=== PATIENT | female | born 1975 | race Caucasian/White ===

== ENCOUNTER 2022-09-25 13:03 | Emergency (ER) | payer OTHER, SELFPAY ==
[2022-09-25 13:04] VITALS: BP 130/77; PULSE 119; RESP 16; TEMP 36.6; O2SAT 100; BMI 24.1
--- NOTE | 2022-09-25 14:12 | US_ITS ---
STUDY: ULTRASOUND TRANSVAGINAL CLINICAL: Female, 46 years old. Vaginal Bleeding TECHNIQUE: Transvaginal COMPARISON: None. FINDINGS: Normal uterine size measuring 9.7 x 6.7 x 4.8 cm in maximal craniocaudal dimension. Hypoechoic myometrial mass measures 1.1 x 0.7 x 0.7 cm. Heterogeneous myometrium with clinician blind artifact suggestive of adenomyosis. Normal endometrial thickness measuring 11.3 mm. There are no endometrial masses, and there is no fluid in the endometrial cavity. Normal uterine cervix. Normal right ovary, measuring 3 x 2.7 x 1.7 cm cm. There are multiple follicles without a dominant cyst. Normal left ovary, measuring 2.1 x 1.3 x 1.1 cm cm. There are multiple follicles without a dominant cyst. There is mild free fluid in the pelvis. Polycystic ovary disease: No. US/Transvaginal Non- IMPRESSION: Uterine fibroid and possible adenomyomatosis Electronically Signed: Geovanni Mckenzie MD at 17:09 EST ,
--- NOTE | 2022-09-25 14:13 | ED.VIS.FEGU ---
HPI HPI - Female History of Present Illness Chief Complaint: Vag Bleeding Narrative Narrative: Patient presents with vaginal bleeding that began 3 days ago. She states that she was diagnosed with throat cancer and stopped having menstrual periods back in April of this year, almost 6 months ago. She would have occasional spotting. She had vaginal spotting again on Saturday which turned into a heavy flow to the point where she is using 1 pad and 1 tampon every 1/2 hour. She denies any lightheadedness or near syncope. She states she is passing clots. She had normal menses prior to the halt of her periods when she was receiving chemotherapy. Her last dose of chemotherapy was in March. She presents because of the vaginal bleeding. She has had mild pelvic cramping. She denies any fevers or chills. No dysuria or hematuria. [facility] Medical History History of throat cancer Allergy/AdvReac Type Severity Reaction Status Date / Time No Known Allergies Allergy Verified 09/25/22 13:06 Surgical History History of appendectomy History of Social History Smoking Status: Former smoker ROS ROS ED ROS Narrative Constitutional: No fever, no chills. HEENT: No sore throat. No neck pain. No loss of vision. No rhinorrhea. Cardiovascular: No chest pain. No palpitations. No pedal edema. Respiratory: No cough, no shortness of breath. Abdominal: Mild pelvic cramping/abdominal pain. No nausea. No vomiting. Genitourinary: No dysuria. No hematuria. Heavy vaginal bleeding. Musculoskeletal: No myalgias. No arthralgias. Neurologic: No headaches. No dizziness. No lightheadedness. Skin: No rash. No change in color. Psychiatric: No depression. No anxiety. EXAM Physical Exam Narrative Exam Narrative: Afebrile. Vital signs noted. HEENT: Normocephalic. Atraumatic. PERRL, EOMI. Neck soft and supple. No point tenderness or step off. Cardiovascular: Regular rate and rhythm. No murmurs, rubs, or gallops appreciated. Respiratory: No tachypnea. Lungs clear to auscultation bilaterally. Gastrointestinal: Abdomen soft, nontender, with normoactive bowel sounds. No rebound or guarding. Neurological: Awake. Alert. Nonfocal, nonlateralizing. Skin: No rash. Normal color. No pallor. Musculoskeletal: No pedal edema. Full range of motion extremities. Const Vital Signs: 09/25/22 13:04 09/25/22 15:47 09/25/22 17:07 Temperature 97.9 F Temperature Source Temporal Pulse Rate 119 H 72 Respiratory Rate 16 14 16 Blood Pressure 130/77 H 123/85 H Blood Pressure Mean 94 97 Pulse Ox 100 98 Oxygen Delivery Method Room Air Room Air Room Air MDM MDM MDM Narrative Medical decision making narrative: Patient has neutropenia of 3.1, hemoglobin normal at 12.9, platelet count slightly low at 142 which I think is nonspecific. Potassium low 3.3 which was replaced orally with 40 mill equivalents. Glucose appropriately elevated at 118 with a normal anion gap of 8. She has low LFTs at 4 and 12. Serum is negative. Ultrasound shows a uterine fibroid and possible adenomyomatosis. Chaperoned pelvic examination revealed a small amount of blood in the vaginal vault but no active hemorrhage. At this point in time, I feel she can be discharged safely home with follow-up to the RN OSTOMY to whom she was referred previously. Return instructions to the emergency department were reviewed. Disposition is discharged home in stable condition. Lab Data Attestation: I reviewed the patient's lab results. Labs: Laboratory Results - last 24 hr 09/25/22 09/25/22 09/25/22 14:20 14:20 15:10 WBC 3.1 L RBC 4.31 Hgb 12.9 Hct 35.8 L MCV 83.1 MCH 29.9 MCHC 36.0 RDW Std Deviation 38.5 RDW Coeff of Luc 12.7 Plt Count 142 L MPV 10.0 Immature Gran % (Auto) 0.000 Neut % (Auto) 63.4 Lymph % (Auto) 25.8 Millard % (Auto) 7.2 Eos % (Auto) 2.9 Baso % (Auto) 0.7 Absolute Neuts (auto) 1.9 L Absolute Lymphs (auto) 0.79 L Nucleated RBC % 0 Sodium 142 Potassium 3.3 L Chloride 107 Carbon Dioxide 27.0 Anion Gap 8 BUN 7 Creatinine 0.59 Estim Creat Clear Calc 118.91 Est GFR (MDRD) Af Amer 140 Est GFR (MDRD) Non-Af 115 BUN/Creatinine Ratio 11.8 Glucose 118 H Calcium 8.6 Total Bilirubin 0.50 AST 4 L ALT 12 L Alkaline Phosphatase 62 Total Protein 6.4 Albumin 3.3 Globulin 3.1 Albumin/Globulin Ratio 1.1 Serum , Qual NEGATIVE Radiography Diagnostic Testing: Clinical Impression(s) from Imaging Studies Transvaginal US 09/25/22 14:12 IMPRESSION: Uterine fibroid and possible adenomyomatosis Electronically Signed: Geovanni Mckenzie MD at 17:09 EST Reading Location ID and State: [address] [place] [address] , Service support , Discharge Plan Triage Chief Complaint: Vag Bleeding ED Provider: Reilly Nash Dx/Rx/DC Orders Clinical Impression: Vaginal bleeding, Uterine fibroid, Hypokalemia, Neutropenia Instructions: Neutropenia, ED Dysfunctional Uterine Bleeding, ED Hypokalemia, ED Uterine Fibroids Primary Care Provider: Eddy Dorantes,Out of Referrals: Eddy Dorantes,Out of [Primary Care Provider] - Activity Restrictions/Additional Instructions: Follow-up with the RN OSTOMY to whom you were referred at [facility] Disposition Disposition: Home, Self Care Discharge Date/Time: 09/25/22 17:46
[2022-09-25 14:33] LABS: Absolute Lymphocyte Count 0.79 X10^3/uL (0.83-4.51); Absolute Neutrophil Count 1.9 X10^3/uL (2.0-7.7); Basophil# 0.02 X10^3/uL; Basophil% 0.7 % (0-1); Eosinophil# 0.09 X10^3/uL; Eosinophils% 2.9 % (0-5); Hematocrit 35.8 % (37-47); Hemoglobin 12.9 g/dL (12.0-15.0); Lymphocyte # 0.79 X10^3/ul (0.83-4.51); Lymphocyte % 25.8 % (19-41); Mean Corpuscular Hgb 29.9 pg (27.0-32.0); Mean Corpuscular Volume 83.1 fL (81-99); Monocyte# 0.22 X10^3/uL; Monocyte% 7.2 % (0-10); NRBC Flagged by Analyzer 0 % (0-5); Neutrophil # 1.94 X10^3/uL (2.7-7.7); Neutrophil % 63.4 % (47-70); Platelet Count 142 K/mm3 (150-450); RBC Distribution Width CV 12.7 % (11.6-14.6); RBC Distribution Width SD 38.5 fl (35.1-43.9); Red Blood Count 4.31 M/mm3 (4.2-5.4); White Blood Count 3.1 K/mm3 (4.4-11.0)
[2022-09-25 14:54] LABS: ALB/GLOB Ratio 1.1 RATIO (0.9-2.4); AST(SGOT) 4 U/L (15-37); Alanine Aminotransfer ALT/SGPT 12 U/L (13-56); Albumin, Serum 3.3 g/dL (3.2-5.0); Alkaline Phosphatase 62 U/L (45-117); Anion Gap 8 (5-15); BUN 7 mg/dL (7-18); BUN/Creat Ratio 11.8 RATIO (10-20); Calcium,Total 8.6 mg/dL (8.5-10.1); Chloride 107 mmol/L (98-107); Creatinine, Serum 0.59 mg/dL (0.55-1.02); EST Glomerular Filtration Rate 115 mL/min (>60); Est Glom Filt Rate - Afr Amer 140 mL/min (>60); Estimated Creatinine Clearance 118.91 ml/min; Globulin 3.1 g/dL (2.2-4.2); Glucose 118 mg/dL (74-106); Potassium 3.3 mmol/L (3.5-5.1); Protein, Total 6.4 g/dL (6.4-8.2); Sodium Level 142 mmol/L (136-145)
[2022-09-25] MEDS: 0.9% Normal Saline 1,000 ML 1000 ML IV (15:15)
[2022-09-25 15:33] LABS: Internal QC Validated? YES +Cl - CLEAR BKGD
[2022-09-25 15:34] LABS: Pregnancy, Serum, hCG Quali. NEGATIVE Negative
[2022-09-25 15:47] VITALS: BP 123/85; PULSE 72; RESP 14; O2SAT 98
[2022-09-25] MEDS: Potassium Chloride Oral Tablet 20 MEQ 40 MEQ PO (16:59)
[2022-09-25 17:07] VITALS: RESP 16
== END 2022-09-25 17:46 | disposition home or self-care (01) ==
PROVIDERS: Emergency Provider Emergency Medicine; Visit Provider Emergency Medicine
DX: N93.9 Abnormal uterine and vaginal bleeding, unspecified (principal); D70.9 Neutropenia, unspecified; D25.9 Leiomyoma of uterus, unspecified; E87.6 Hypokalemia; Z87.891 Personal history of nicotine dependence
CPT/HCPCS: 76830; 80053; 84703; 85025; 96360; 99283; A4216

== ENCOUNTER 2025-09-06 13:49 | Emergency (ER) | payer OTHER, SELFPAY ==
[2025-09-06 13:50] VITALS: BP 162/132; PULSE 104; RESP 18; TEMP 36.8; O2SAT 96; BMI 30.9
--- NOTE | 2025-09-06 14:35 | RAD_ITS ---
PROCEDURE: CHEST 1 VIEW (PORTABLE) 09/06/2025 REASON FOR EXAM: CHEST PAIN TECHNIQUE: Frontal view of the chest. COMPARISON: None. RAD/Chest 1 View (Portable) IMPRESSION: Lungs appear clear throughout. No pleural effusion or pneumothorax is noted. The cardiomediastinal silhouette is within the normal range. No acute osseous change is seen. No evidence of acute cardiopulmonary disease. Reading Location: [place] [address]
--- NOTE | 2025-09-06 14:40 | ED.VIS.CHEST ---
HPI History of Present Illness Chief Complaint: Chest Pain Narrative Narrative: Patient is a 49-year-old female presenting to the emergency department with complaints of chest pain. She reports I think I am having an adrenal crisis. She has a past medical history of adrenal insufficiency on hydrocortisone p.o. Also has a past medical history of migraines, states she gets them very frequently when asked when her last migraine was. States that she has had a migraine for the past 3 days. Reports that 3 days ago she woke up with a headache. Reports that it is all over. She states this is different than her normal migraines given the pain has stayed consistent and does not wax and wane. The only thing she is taken for headache is Nurtec and an aspirin this morning. Denies any head trauma or falls. Denies any visual changes, slurred speech, focal numbness or weakness. Patient is also endorsing left-sided chest pain that started this morning. States it feels like a tightness. She reports it feels similar to her past anxiety attacks. Denies any shortness of breath. Denies fever, chills, diaphoresis, abdominal pain, vomiting. She does endorse nausea. [facility] Medical History History of throat cancer Home Medications ?Medication ?Instructions ?Recorded ?Last Taken ?Type amitriptyline 25 mg tablet 25 mg PO QHS 09/06/25 09/05/25 History [id number]-pwdnslmltujot-azfvauva 1 tab PO Q4H PRN headache 09/06/25 09/03/25 History 50 mg-325 mg-40 mg tablet esomeprazole magnesium 40 mg 40 mg PO BID PRN GERD 09/06/25 09/05/25 History capsule,delayed release hydrocortisone 5 mg tablet 10 mg PO DAILY 09/06/25 09/06/25 History hydrocortisone 5 mg tablet (Cortef) 5 mg PO BID 09/06/25 09/05/25 History rimegepant 75 mg disintegrating 75 mg PO QODAY 09/06/25 09/06/25 History tablet (Nurtec ODT) Allergy/AdvReac Type Severity Reaction Status Date / Time No Known Allergies Allergy Verified 09/06/25 13:52 Family History no significant family his Surgical History History of History of appendectomy Social History Smoking Status: Former smoker ROS ROS ED ROS Narrative See HPI EXAM Physical Exam Narrative Exam Narrative: Vital signs: Reviewed General: Alert and orientedx3. No acute distress HEENT: Head is normocephalic and atraumatic, sinuses nontender, pupils equal round and reactive. Nares are patent. Oropharynx and throat exams normal. Neck: Supple without lymphadenopathy nontender Cardiovascular: Regular rate and rhythm, no murmurs. No rubs or gallops. Normal S1 and S2 Respiratory: Clear to auscultation bilaterally. No wheezes, rales, rhonchi Chest: Chest wall is atraumatic. Pain is not reproducible on exam. Abdominal: Soft and nontender. Normal bowel sounds. No guarding or rebound. Nonsurgical abdomen Extremities: No lower extremity edema. No tenderness. No bruising. Normal range of motion. Normal sensation. Skin: No rash or redness. Neurological: Cranial nerves II through XII are grossly intact. Normal strength and sensation. Normal cerebellar function The rest of the physical exam is unremarkable Const Vital Signs: 09/06/25 13:50 09/06/25 14:34 09/06/25 14:36 Temperature 98.3 F Temperature Source Oral Pulse Rate 104 H Respiratory Rate 18 Respiratory Effort Normal Non-Labored Blood Pressure 162/132 H Blood Pressure Mean 142 Pulse Ox 96 Oxygen Delivery Method Room Air Room Air Oxygen Flow Rate (L/min) 97 09/06/25 14:49 09/06/25 15:00 09/06/25 16:00 Temperature Temperature Source Pulse Rate 87 87 90 Respiratory Rate Respiratory Effort Blood Pressure 147/104 H 147/104 H 158/101 H Blood Pressure Mean 118 118 120 Pulse Ox 96 96 96 Oxygen Delivery Method Room Air Room Air Room Air Oxygen Flow Rate (L/min) 09/06/25 17:00 09/06/25 18:00 Temperature 98.3 F Temperature Source Pulse Rate 82 82 Respiratory Rate 18 Respiratory Effort Blood Pressure 135/68 H 135/68 H Blood Pressure Mean 90 90 Pulse Ox 96 96 Oxygen Delivery Method Room Air Oxygen Flow Rate (L/min) Neuro oriented x3, CN's II-XII intact bilaterally, no sensory deficits noted and gait normal Sensorium / Orientation: awake, alert, oriented to person, oriented to place and oriented to time Motor Exam: strength 5/5 throughout MDM MDM MDM Narrative Medical decision making narrative: Patient is a 49-year-old female presenting to emergency department for a headache and chest pain. Patient was seen and examined. Vitals are stable. Patient resting in bed comfortably no acute distress. Patient's migraine is consistent with prior migraines that is just lasting longer. She had no head trauma. She is neurologically intact. NIH of 0. With her prior history of migraines I do not think it is necessary to obtain CT brain imaging at this time given her unremarkable exam. She is not febrile or altered to consider meningitis or encephalitis. She has no nuchal rigidity on exam. EKG shows sinus tachycardia at a rate of 103 with no ischemic changes. No ST elevation or depression. No abnormal T wave inversions. No dysrhythmia. CBC with chronic leukopenia at 4.3 and a normal hemoglobin. BMP with no significant abnormalities. Troponin and reflex within normal limits. Chest x-ray with no acute radiographic abnormality noted on my review. Radiology read in agreement. Patient was given a fluid bolus, Tylenol, Benadryl, Toradol and Compazine for a migraine cocktail. She was reevaluated after this and states that her headache is now gone. She was also given her dose of hydrocortisone 5 mg that was due at 3 PM today. Her vital signs are all within normal limits I do not think she is having an adrenal crisis. States that she feels much better after the migraine cocktail. With a negative cardiac workup and resolved migraine the patient is stable for discharge home. Patient discharged from the Emergency Department. I do not feel that the patient's evaluation reveals any acute reason for admission at this time. I instructed them to either follow-up with their primary care physician or promptly return to the Emergency Department for reevaluation should symptoms worsen or new symptoms develop. I explained what symptoms would indicate the need to return to the emergency department. Shared decision making was used. The patient voiced understanding of the treatment plan and is agreeable with it. Clinical impression Migraine Chest pain History & Record Review Discussion w/independent historian: Patient and Significant other Lab Data Attestation: I reviewed the patient's lab results. Labs: Laboratory Results - last 24 hr 09/06/25 09/06/25 09/06/25 14:30 16:16 17:58 WBC 4.3 L RBC 5.29 Hgb 14.5 Hct 43.2 MCV 81.7 MCH 27.4 MCHC 33.6 RDW Std Deviation 38.9 RDW Coeff of Luc 13.2 Plt Count 197 MPV 9.8 Immature Gran % (Auto) 0.200 Neut % (Auto) 65.7 Lymph % (Auto) 26.1 Sharp % (Auto) 5.4 Eos % (Auto) 1.9 Baso % (Auto) 0.7 Absolute Neuts (auto) 2.8 Absolute Lymphs (auto) 1.11 Nucleated RBC % 0 Sodium 144 Potassium 3.5 Chloride 106 Carbon Dioxide 28.6 Anion Gap 9 BUN 12 Creatinine 0.79 Estim Creat Clear Calc 101.10 Est GFR (MDRD) Non-Af 91 BUN/Creatinine Ratio 14.8 Glucose 109 H Calcium 9.6 Troponin T High Sens < 6 Troponin T Hi Sens 2 Hr 6 Troponin T Hi Sens 4Hr < 6 Radiography Chest X-Ray - ED: Read by ED Physician, Normal, No Acute Disease and No Infiltrates Diagnostic Testing: Clinical Impression(s) from Imaging Studies Chest X-Ray 09/06/25 14:35 IMPRESSION: Lungs appear clear throughout. No pleural effusion or pneumothorax is noted. The cardiomediastinal silhouette is within the normal range. No acute osseous change is seen. No evidence of acute cardiopulmonary disease. Reading Location: [place] [address] Discharge Plan Triage Chief Complaint: Chest Pain ED Provider: Lulu Sheriff Dx/Rx/DC Orders Clinical Impression: Migraine, Chest pain Instructions: Self-Care for Headaches, Preventing Migraine Headaches ..., ED Chest Pain, Uncertain Cause Prescriptions: No Action hydrocortisone 5 mg tablet 10 mg PO DAILY Patient Comments: PT TAKES 10MG AM, 5MG NOON, AND 5MG PM amitriptyline 25 mg tablet 25 mg PO QHS Nurtec ODT 75 mg tablet,disintegrating 75 mg PO QODAY nnufvyetxg-pgkvpinlfgaiz-mtrl 50-325-40 mg tablet 1 tab PO Q4H PRN (Reason: headache) hydrocortisone [Cortef] 5 mg tablet 5 mg PO BID Patient Comments: PT TAKES 10MG AM, 5MG NOON, AND 5MG PM esomeprazole magnesium 40 mg capsule,delayed release(DR/EC) 40 mg PO BID PRN (Reason: GERD) Primary Care Provider: NATALIA VELEZ Referrals: William Quiroga MD [Med Staff - Active Staff, Family Practice] - As soon as possible [facility],Out of [Non-Staff, Medical] Activity Restrictions/Additional Instructions: If you develop another headache you can take 800 mg of ibuprofen and 1000 mg of Tylenol to see if this helps. If it does not then need to return to the emergency department. Follow-up with your aged or disabled care worker and your neurologist for your migraines as soon as possible. Your evaluation in the Emergency Department did not reveal any acute reason for admission. However, I want to emphasize that you may be early in the course of a disease process or illness even if it is not present. For this reason you should follow-up within 24 hours for reevaluation with either your primary care physician or if necessary back here in the Emergency Department. You should return to the Emergency Department immediately if your symptoms worsen or new symptoms develop. Print Language: [place] Disposition Disposition: Home, Self Care Discharge Date/Time: 09/06/25 17:59
[2025-09-06 14:43] LABS: Hematocrit 43.2 % (37-47); Hemoglobin 14.5 g/dL (12.0-15.0); Immature Granulocytes Count 0.010 X10^3/uL (0.0-0.0); Mean Corp Hgb Conc 33.6 g/dL (32-36); Mean Corpuscular Volume 81.7 fL (81-99); Mean Platelet Vol. 9.8 fl (6.2-12.0); NRBC Flagged by Analyzer 0 % (0-5); Platelet Count 197 K/mm3 (150-450); RBC Distribution Width CV 13.2 % (11.6-14.6); RBC Distribution Width SD 38.9 fl (35.1-43.9); Red Blood Count 5.29 M/mm3 (4.2-5.4); White Blood Count 4.3 K/mm3 (4.4-11.0)
[2025-09-06 14:49] VITALS: BP 147/104; PULSE 87; O2SAT 96
[2025-09-06 15:00] VITALS: BP 147/104; PULSE 87; O2SAT 96
[2025-09-06 15:14] LABS: Anion Gap 9 (5-15); BUN 12 mg/dL (4-19); BUN/Creat Ratio 14.8 RATIO (10-20); Calcium,Total 9.6 mg/dL (7.6-11.0); Carbon Dioxide 28.6 mmol/L (21.0-32.0); Chloride 106 mmol/L (98-108); Estimated Creatinine Clearance 101.10 ml/min (50-250); Glucose 109 mg/dL (70-99); Potassium 3.5 mmol/L (3.3-5.1); Troponin T High Sensitivity < 6 ng/L (<=14)
[2025-09-06] MEDS: 0.9% Normal Saline (1000mL) 1,000 ML 1000 ML IV (15:26)
[2025-09-06] MEDS: DiphenhydrAMINE 50 MG/ML Syringe 25 MG IV (15:27)
[2025-09-06 16:00] VITALS: BP 158/101; PULSE 90; O2SAT 96
[2025-09-06 16:54] LABS: Troponin T High Sens 4 HR < 6 ng/L (<=14)
[2025-09-06 17:00] VITALS: BP 135/68; PULSE 82; O2SAT 96
[2025-09-06 18:00] VITALS: BP 135/68; PULSE 82; RESP 18; TEMP 36.8; O2SAT 96
[2025-09-06 18:39] LABS: Troponin T High Sens 2 HR 6 ng/L (<=14)
== END 2025-09-06 17:59 | disposition home or self-care (01) ==
PROVIDERS: Emergency Provider Student in an Organized Health Care Education/Training Program; Visit Provider Student in an Organized Health Care Education/Training Program
DX: G43.909 Migraine, unspecified, not intractable, without status migrainosus (principal); R07.9 Chest pain, unspecified; Z87.891 Personal history of nicotine dependence; Z79.899 Other long term (current) drug therapy; R29.700 NIHSS score 0
CPT/HCPCS: 71045; 80048; 84484; 85025; 93005; 96361; 96374; 96375; 99284; A4216